=== PATIENT | female | born 1970 ===

== ENCOUNTER 2018-10-31 15:30 | Outpatient (RCR) | payer OTHER ==
[2018-08-14 09:44] VITALS: BP 152/92
--- NOTE | 2018-08-14 14:25 | ONCOLOGY CONSULTATION ---
EVENT DATE: August 14, 2018 REFERRING PHYSICIAN [facility] REASON FOR CONSULTATION Evaluation of hemochromatosis. HEMATOLOGY HISTORY Patient is a 48-year old female who was diagnosed with an autoimmune disease in the past after presenting with a skin rash and patient has been treated before with methotrexate and steroids but not for the last several months because there were no flare-ups recently. She has occasional pain in her hands and tingling and numbness in her hands, especially when she is sleeping. She went to the [facility] and she had some blood work, which showed CBC with white count 7.9, hemoglobin 16.8, hematocrit 48.4 and platelets 204,000. Iron studies were done and showed serum iron 107, TIBC 226, iron saturation 47% and ferritin level 466. Patient had hemochromatosis test done, which came back positive for heterozygous state for H63D mutation, only one chromosome is involved, but I see patient had only 2 out of the 3 mutations to be done. PAST MEDICAL HISTORY Autoimmune disease with a skin rash and pain in her hands. PAST SURGICAL HISTORY 1. Tonsillectomy, 1993. 2. Appendectomy, 1977. FAMILY HISTORY Father with colon cancer but no family history of hemochromatosis. SOCIAL HISTORY Patient is with two sons. She works in the [employer] for the [employer]. She quit smoking in 2012, after smoking five cigarettes per day for about five years. She used to drink alcohol, about three drinks per week, but she never claimed she was a heavy alcoholic in the past. No abuse of illicit drugs. CURRENT MEDICATIONS None. ALLERGIES No known drug allergies. REVIEW OF SYSTEMS CONSTITUTIONAL: No appetite or weight change. No fever, chills or sweating. No recent infection. HEENT: Ears: No tinnitus or hearing problem. Nose: No nasal discharge or epistaxis. Throat: No sore throat or mouth ulcers. Eyes: No diplopia or visual changes. RESPIRATORY: No shortness of breath. No cough, expectoration or hemoptysis. CARDIOVASCULAR: No chest pain, orthopnea, or paroxysmal nocturnal dyspnea (PND). No edema. No palpitations. GASTROINTESTINAL: No nausea or vomiting. No diarrhea or constipation. No change in bowel movements. No heartburn or swallowing difficulties. No abdominal pain. No jaundice. No hematemesis, melena or rectal bleeding. GENITOURINARY: Patient has had heavy periods for years, and she has been seen by a vet assistant, and she was offered uterine ablation, but the patient refused the procedure. As per patient, she has had heavy periods for a total of seven days every month. MUSCULOSKELETAL: Patient has pain in the hands sometimes due to her autoimmune disease. NEUROLOGICAL: She has positional tingling and numbness in the hands, especially during sleeping. HEMATOLOGIC/LYMPHATIC: She bruises easily. SKIN: No skin rash or lumps. PSYCHIATRIC: No anxiety or depression. PHYSICAL EXAMINATION GENERAL: Looks stable. Well-developed, well-nourished, and in no acute distress. VITAL SIGNS: Blood pressure 152/92, pulse 92 per minute, respirations 16 per minute, temperature 97.3, pulse ox 92% on room air. HEENT: Head: Atraumatic. No sinus tenderness to palpation. Eyes: No icterus or conjunctivitis. Mouth and Throat: No oral thrush or mucositis. NECK: Supple. No cervical or supraclavicular lymphadenopathy. LUNGS: Clear to auscultation and percussion bilaterally. HEART: Regular rate and rhythm. No gallops, murmurs, clicks or rubs. ABDOMEN: Soft and lax. No tenderness. No hepatosplenomegaly. No masses. EXTREMITIES: No cyanosis, clubbing or edema. LYMPHATICS: No peripheral lymphadenopathy. NEUROLOGICAL: Conscious, alert and oriented x3. No focal motor or sensory deficits. PSYCHIATRIC: Mood and affect appear normal. SKIN: No skin rash, bruise or purpuric eruption. ASSESSMENT 1. 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 Her iron was high at 107 but the ferritin was high at 466 with iron saturation 47%. According to the genetic testing for hemochromatosis, she is considered a carrier for hemochromatosis and as hemochromatosis is an autosomal recessive disease the carrier is supposed not to show the iron overload but those patients who are carriers may have high iron because of drinking and patient does not drink much, about three drinks, usually wine, per weeks, sometimes scotch, and I believe her high ferritin is due to her autoimmune disease due to the chronic inflammation in her body and if ferritin is acute phase reactant then the ferritin will be high because of that. I am planning to check her third mutation for the HFE gene mutation and if she is negative for that mutation then the patient is considered a carrier and I am planning to do phlebotomy to normalize her ferritin level. If her mutation is positive, then the patient will be probably heterozygous for the HFE gene and she will be considered disease and if this is the case I am planning to phlebotomize her blood to keep the ferritin less than 100 and the iron saturation less than 60%. I explained that to the patient and she is agreeable with the plan of management. 2. Autoimmune disease presented with pain in her hands and skin rash, not currently on medication. PLAN 1. HFE gene mutation testing. 2. Check iron studies. 3. Patient to return after the above for further evaluation and management. 4. Patient to contact us for any new concerns or complaints. GAYLED
[2018-08-25 11:33] VITALS: BP 132/97
[2018-09-05 08:53] VITALS: BP 151/93
--- NOTE | 2018-09-05 09:54 | [facility] ONCOLOGY NOTE ---
EVENT DATE: September 05, 2018 DIAGNOSES 1. 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 2. Chronic inflammatory disease. CHIEF COMPLAINT Patient is here today for followup of her iron overload. HEMATOLOGY HISTORY Patient is a 48-year old female who was diagnosed with an autoimmune disease in the past after presenting with a skin rash and patient has been treated before with methotrexate and steroids but not for the last several months because there were no flare-ups recently. She has occasional pain in her hands and tingling and numbness in her hands, especially when she is sleeping. She went to the [facility] and she had some blood work, which showed CBC with white count 7.9, hemoglobin 16.8, hematocrit 48.4 and platelets 204,000. Iron studies were done and showed serum iron 107, TIBC 226, iron saturation 47% and ferritin level 466. Patient had hemochromatosis test done, which came back positive for heterozygous state for H63D mutation, only one chromosome is involved, but I see patient had only 2 out of the 3 mutations to be done. Repeat iron studies showed serum iron 114, TIBC 236, iron saturation 48.3 and ferritin 488. Genetic testing for hemochromatosis came back positive for heterozygous state for H63D mutation of the HFE gene. HISTORY OF PRESENT ILLNESS Patient is here today for followup of her iron overload. She is complaining of pain in her hands and feet. She has neuropathy in her hands lately. She has also easy bruising, weakness and fatigue. PAST MEDICAL HISTORY Autoimmune disease with a skin rash and pain in her hands. PAST SURGICAL HISTORY 1. Tonsillectomy, 1993. 2. Appendectomy, 1977. FAMILY HISTORY Father with colon cancer but no family history of hemochromatosis. SOCIAL HISTORY Patient is with two sons. She works in the [employer] for the [employer]. She quit smoking in 2012, after smoking five cigarettes per day for about five years. She used to drink alcohol, about three drinks per week, but she never claimed she was a heavy alcoholic in the past. No abuse of illicit drugs. CURRENT MEDICATIONS None. ALLERGIES No known drug allergies. REVIEW OF SYSTEMS CONSTITUTIONAL: No appetite or weight change. No fever, chills or sweating. No recent infection. HEENT: Ears: No tinnitus or hearing problem. Nose: No nasal discharge or epistaxis. Throat: No sore throat or mouth ulcers. Eyes: No diplopia or visual changes. RESPIRATORY: No shortness of breath. No cough, expectoration or hemoptysis. CARDIOVASCULAR: No chest pain, orthopnea, or paroxysmal nocturnal dyspnea (PND). No edema. No palpitations. GASTROINTESTINAL: No nausea or vomiting. No diarrhea or constipation. No change in bowel movements. No heartburn or swallowing difficulties. No abdominal pain. No jaundice. No hematemesis, melena or rectal bleeding. GENITOURINARY: Patient has had heavy periods for years, and she has been seen by a cytotechnologist, and she was offered uterine ablation, but the patient refused the procedure. As per patient, she has had heavy periods for a total of seven days every month. MUSCULOSKELETAL: Patient has pain in her hands and feet. NEUROLOGICAL: She has neuropathy in her hands. HEMATOLOGIC/LYMPHATIC: She bruises easily. She is weak, tired and fatigued. SKIN: No skin rash or lumps. PSYCHIATRIC: No anxiety or depression. PHYSICAL EXAMINATION GENERAL: Looks stable. Well-developed, well-nourished, and in no acute distress. VITAL SIGNS: Blood pressure 151/93, pulse 91 per minute, respirations 16 per minute, temperature 97.3, pulse ox 93% on room air. HEENT: Head: Atraumatic. No sinus tenderness to palpation. Eyes: No icterus or conjunctivitis. Mouth and Throat: No oral thrush or mucositis. NECK: Supple. No cervical or supraclavicular lymphadenopathy. LUNGS: Clear to auscultation and percussion bilaterally. HEART: Regular rate and rhythm. No gallops, murmurs, clicks or rubs. ABDOMEN: Soft and lax. No tenderness. No hepatosplenomegaly. No masses. EXTREMITIES: No cyanosis, clubbing or edema. LYMPHATICS: No peripheral lymphadenopathy. NEUROLOGICAL: Conscious, alert and oriented x3. No focal motor or sensory deficits. PSYCHIATRIC: Mood and affect appear normal. SKIN: No skin rash, bruise or purpuric eruption. DIAGNOSTIC DATA Iron studies show serum iron 114, TIBC 236, saturation 48.3, ferritin 488. Genetic testing for hemochromatosis came back positive for heterozygous state for H63D mutation of the HFE gene. ASSESSMENT 1. 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 Her ferritin currently is 488 and saturation 48.3%. Patient is supposed to be a carrier but because of her chronic inflammatory with possible connective tissue disease, this could be the reason of having high iron. Also, she drinks about three to four drinks per week and patient was advised to quit drinking and to see a plant pathologist for evaluation and management of her chronic inflammatory disease. I am planning in the meantime to deplete her iron. I am planning to proceed with phlebotomy every two weeks as long as the ferritin is above 100. I am planning to see her in three months from now with CBC, chem panel and iron studies with ferritin and I will repeat CBC, iron studies with ferritin every two weeks prior to phlebotomy. I explained that to the patient. Patient is agreeable with the plan of management. 2. Autoimmune disease. Patient is advised to see a plant pathologist. PLAN 1. Phlebotomize 500 mL blood as long as ferritin is above 100. 2. CBC, iron studies with ferritin to be checked every two weeks. 3. Patient to return in three months with CBC, chem panel, iron studies with ferritin. 4. Patient to contact us for any new concerns or complaints. [place]
[2018-09-05] MEDS: LIDOCAINE/SOD BICARB 8.4% SYR SC PRN (15:00)
[2018-09-05 15:10] VITALS: BP 156/90
[2018-09-05 15:20] VITALS: BP 136/84
[2018-09-05 15:40] VITALS: BP 40/28
[2018-09-05 15:50] VITALS: BP 140/74
[2018-09-05 16:25] VITALS: BP 132/82
[2018-09-18 16:10] VITALS: BP 156/91
[2018-09-18 16:25] LABS: PLATELET COUNT, AUTOMATED 253 K/uL (150-450)
[2018-09-19 15:08] VITALS: BP 135/72
[2018-09-19 15:25] VITALS: BP 139/86
[2018-09-19] MEDS: LIDOCAINE/SOD BICARB 8.4% SYR SC PRN (15:30)
[2018-10-02 16:36] VITALS: BP 139/86
[2018-10-02 17:03] LABS: PLATELET COUNT, AUTOMATED 254 K/uL (150-450)
[2018-10-03 15:04] VITALS: BP 143/93
[2018-10-03 15:22] VITALS: BP 126/78
[2018-10-16 16:39] VITALS: BP 147/92
[2018-10-16 16:58] LABS: PLATELET COUNT, AUTOMATED 254 K/uL (150-450)
[2018-10-17 14:58] VITALS: BP 149/86
[2018-10-17 15:14] VITALS: BP 122/82
[2018-10-17] MEDS: LIDOCAINE/SOD BICARB 8.4% SYR SC PRN (15:20)
[2018-10-30 16:41] LABS: PLATELET COUNT, AUTOMATED 242 K/uL (150-450)
[2018-10-31] VITALS (11 sets, daily range): BP systolic 71–137; BP diastolic 49–95
[~2018-10-31 15:30] MED LIST: METH2.5T43 PO
[2018-10-31] MEDS: LIDOCAINE/SOD BICARB 8.4% SYR SC PRN (16:48)
== END 2018-11-12 ==
LOC: SPU 15:30
PROVIDERS: ATTEND Internal Medicine Hematology
DX: E83.119 Hemochromatosis, unspecified (principal)
CPT/HCPCS: 36415; 81256; 82728; 83540; 83550; 85025; 99195; 99202; 99212